=== PATIENT | female | born 1990 | race American Indian/Alaskan Native ===

== ENCOUNTER 2017-11-06 10:59 | Outpatient (CLI) | payer BC, MEDICAID ==
[2017-11-06 12:24] LABS: Bilirubin,Urine NEG (Negative); Blood,Urine NEG (Negative); Color,Urine Yellow (Yellow); Mucus,Urine 1+ /HPF; Protein,Urine <15 mg/dL mg/dL (Negative); Urobilinogen,Urine < 2.0 mg/dL (<2.0)
[2017-11-06] MEDS ORDERED: LACTATED RINGERS 1,000 ML ONE (12:47)
[2017-11-06] MEDS ORDERED: LACTATED RINGERS 1,000 ML IV SCH (13:00)
[2017-11-06 13:17] VITALS: BP 115/79
== END 2017-11-06 13:41 | disposition home or self-care (01) ==
LOC: LD 10:59 → TRG 10:59
PROVIDERS: ATTEND Obstetrics & Gynecology
DX: O47.03 False labor before 37 completed weeks of gestation, third trimester (principal); Z3A.33 33 weeks gestation of pregnancy
CPT/HCPCS: 59025; 81001; J7120